=== PATIENT | female | born 1940 | race Native Hawaiian/Other Pacific Islander ===

== ENCOUNTER 2016-10-01 07:10 | Outpatient (CLI) | payer MEDICARE, OTHER | END 2016-10-01 07:11 | disposition home or self-care (01) | DX: Z51.81 Encounter for therapeutic drug level monitoring (principal); Z94.0 Kidney transplant status ==

== ENCOUNTER 2017-01-07 07:58 | Outpatient (CLI) | payer MEDICARE, OTHER | END 2017-01-07 07:59 | disposition home or self-care (01) | DX: Z51.81 Encounter for therapeutic drug level monitoring (principal); Z94.0 Kidney transplant status ==

== ENCOUNTER 2017-02-08 08:00 | Outpatient (CLI) | payer MEDICARE, OTHER ==
[2017-02-08 09:11] LABS: BASOPHILS % (AUTO) 0.6 %; EOSINOPHILS # (AUTO) 0.1 10^3/uL (0.0-0.7); EOSINOPHILS % (AUTO) 1.2 %; HCT - HEMATOCRIT 41.9 % (37.0-47.0); HGB - HEMOGLOBIN 13.8 g/dL (12.0-16.0); LYMPHOCYTES # (AUTO) 1.4 10^3/uL (1.5-3.5); LYMPHOCYTES % (AUTO) 16.3 %; MEAN CORPUSCULAR HEMOGLOBIN 29.8 pg (27.0-31.0); MEAN CORPUSCULAR HGB CONC 33.1 g/dL (32.0-36.0); MEAN CORPUSCULAR VOLUME 90.1 fL (81.0-99.0); MEAN PLATELET VOLUME 6.9 fL (7.9-10.8); MONOCYTES # (AUTO) 0.7 10^3/uL (0.0-1.0); NEUTROPHILS # (AUTO) 6.2 10^3/uL (1.5-6.6); NEUTROPHILS % (AUTO) 73.9 %; RED BLOOD COUNT 4.65 10^6/uL (4.20-5.40); RED CELL DISTRIBUTION WIDTH 14.4 % (12.0-15.0); UNCORRECTED WHITE BLOOD COUNT 8.4 x10^3/uL; WHITE BLOOD COUNT 8.4 x10^3/uL (4.8-10.8)
[2017-02-08 09:33] LABS: CALCIUM 9.5 mg/dL (8.5-10.3); CREATININE 1.1 mg/dL (0.4-1.0); MAGNESIUM 1.5 mg/dL (1.7-2.8); PHOSPHORUS 3.2 mg/dL (2.5-4.6); POTASSIUM 4.1 mmol/L (3.5-5.0)
== END 2017-02-08 08:01 | disposition home or self-care (01) ==
LOC: LAB 08:00
PROVIDERS: ATTEND Registered Nurse
DX: Z94.0 Kidney transplant status (principal); Z51.81 Encounter for therapeutic drug level monitoring; T86.10 Unspecified complication of kidney transplant
CPT/HCPCS: 36415; 80048; 80197; 82570; 83735; 84100; 84156; 85025

== ENCOUNTER 2017-02-16 07:29 | Outpatient (CLI) | payer MEDICARE, OTHER ==
[2017-02-16 12:42] LABS: BASOPHILS # (AUTO) 0.1 10^3/uL (0.0-0.1); BASOPHILS % (AUTO) 0.7 %; EOSINOPHILS # (AUTO) 0.2 10^3/uL (0.0-0.7); EOSINOPHILS % (AUTO) 1.8 %; HCT - HEMATOCRIT 42.6 % (37.0-47.0); LYMPHOCYTES # (AUTO) 1.2 10^3/uL (1.5-3.5); LYMPHOCYTES % (AUTO) 13.3 %; MEAN CORPUSCULAR HGB CONC 32.9 g/dL (32.0-36.0); MEAN CORPUSCULAR VOLUME 91.2 fL (81.0-99.0); MEAN PLATELET VOLUME 7.3 fL (7.9-10.8); MONOCYTES # (AUTO) 0.8 10^3/uL (0.0-1.0); MONOCYTES % (AUTO) 8.4 %; NEUTROPHILS # (AUTO) 6.8 10^3/uL (1.5-6.6); NEUTROPHILS % (AUTO) 75.8 %; RED BLOOD COUNT 4.67 10^6/uL (4.20-5.40); RED CELL DISTRIBUTION WIDTH 14.2 % (12.0-15.0)
[2017-02-16 12:59] LABS: CALCIUM 9.6 mg/dL (8.5-10.3); CREATININE 1.1 mg/dL (0.4-1.0); MAGNESIUM 1.7 mg/dL (1.7-2.8); PHOSPHORUS 3.7 mg/dL (2.5-4.6)
== END 2017-02-16 07:30 | disposition home or self-care (01) ==
LOC: LAB.WCP 07:29
PROVIDERS: ATTEND Registered Nurse
DX: Z94.0 Kidney transplant status (principal); Z51.81 Encounter for therapeutic drug level monitoring
CPT/HCPCS: 36415; 80048; 80197; 83735; 84100; 85025

== ENCOUNTER 2017-04-06 07:14 | Outpatient (CLI) | payer MEDICARE, OTHER ==
[2017-04-06 13:21] LABS: BASOPHILS % (AUTO) 0.6 %; EOSINOPHILS # (AUTO) 0.2 10^3/uL (0.0-0.7); EOSINOPHILS % (AUTO) 2.4 %; HCT - HEMATOCRIT 43.1 % (37.0-47.0); HGB - HEMOGLOBIN 13.9 g/dL (12.0-16.0); LYMPHOCYTES # (AUTO) 1.4 10^3/uL (1.5-3.5); LYMPHOCYTES % (AUTO) 17.5 %; MEAN CORPUSCULAR HEMOGLOBIN 29.9 pg (27.0-31.0); MEAN CORPUSCULAR HGB CONC 32.2 g/dL (32.0-36.0); MEAN CORPUSCULAR VOLUME 92.9 fL (81.0-99.0); MEAN PLATELET VOLUME 7.2 fL (7.9-10.8); MONOCYTES # (AUTO) 0.8 10^3/uL (0.0-1.0); MONOCYTES % (AUTO) 9.4 %; NEUTROPHILS # (AUTO) 5.6 10^3/uL (1.5-6.6); NEUTROPHILS % (AUTO) 70.1 %; NUCLEATED RED BLOOD CELLS AUTO 0.2 /100WBC; RED BLOOD COUNT 4.64 10^6/uL (4.20-5.40); RED CELL DISTRIBUTION WIDTH 14.2 % (12.0-15.0)
[2017-04-06 13:54] LABS: BILIRUBIN,TOTAL 0.8 mg/dL (0.2-1.0); CALCIUM 9.2 mg/dL (8.5-10.3); CREATININE 1.3 mg/dL (0.4-1.0); MAGNESIUM 1.8 mg/dL (1.7-2.8); PHOSPHORUS 3.7 mg/dL (2.5-4.6); POTASSIUM 3.8 mmol/L (3.5-5.0); TOTAL PROTEIN 7.1 g/dL (6.7-8.2)
== END 2017-04-06 07:15 | disposition home or self-care (01) ==
LOC: LAB.WCP 07:14
PROVIDERS: ATTEND Internal Medicine Nephrology
DX: Z94.0 Kidney transplant status (principal); Z51.81 Encounter for therapeutic drug level monitoring
CPT/HCPCS: 36415; 80053; 80197; 83735; 84100; 85025

== ENCOUNTER 2017-05-19 08:16 | Day surgery (SDC) | payer MEDICARE, OTHER ==
[~2017-05-19 08:16] MED LIST: BRIMONIDINE 0.2% OPHTH DROPS 5 ML ONE; TIMOLOL 0.5% OPHTH DROPS ONE
[2017-05-19] MEDS ORDERED: PROPARACAINE 0.5% OPHTH DROPS 15 ML ONE (09:10)
[2017-05-19] MEDS ORDERED: CYCLOPENTOLATE 1% OPHTH DROPS 2 ML ONE (09:11)
[2017-05-19] MEDS ORDERED: KETOROLAC 0.45% OPHTH DROPS ONE (09:11)
[2017-05-19] MEDS ORDERED: PHENYLEPHRINE 2.5% OPHTH 2 ML DROPS ONE (09:12)
[2017-05-19] MEDS ORDERED: LACTATED RINGERS 500 ML IV ONE (09:40)
[2017-05-19] MEDS ORDERED: PROPARACAINE 0.5% OPHTH DROPS 15 ML OPTH ONE (09:59)
[2017-05-19] MEDS ORDERED: BRIMONIDINE 0.2% OPHTH DROPS 5 ML OPTH ONE (09:59)
[2017-05-19] MEDS ORDERED: EPINEPHrine 1 MG/ML AMP IVP ONE (09:59)
[2017-05-19] MEDS ORDERED: CHONDR SULF/HYALURONATE SYRINGE IO ONE (09:59)
[2017-05-19] MEDS ORDERED: TRIAMCIN/MOXIFLOX/VANCO 1 ML VIAL IO ONE (10:00)
[2017-05-19] MEDS ORDERED: BSS/LIDOCAINE/EPINEPHRINE 1 ML SYRINGE IO ONE (10:00)
[2017-05-19] MEDS ORDERED: TIMOLOL 0.5% OPHTH DROPS OPTH ONE (10:00)
[2017-05-19] MEDS ORDERED: PROPOFOL 200 MG/20 ML VIAL IVP ONE (10:14)
[2017-05-19] MEDS ORDERED: MIDAZOLAM 2 MG/2 ML VIAL IVP ONE (10:14)
[2017-05-19 10:37] VITALS: BP 137/69
--- NOTE | 2017-05-19 11:23 | OPERATIVE REPORT ---
DATE OF SURGERY: 05/19/2017 00:00:00 PREOPERATIVE DIAGNOSIS: Visually significant cataract, right eye. This was her first cataract surgery. POSTOPERATIVE DIAGNOSIS: Visually significant cataract, right eye. This was her first cataract surgery. NAME OF PROCEDURE: Phacoemulsification posterior chamber intraocular lens implant, right eye. SURGEON: Mike Hamilton MD. ANESTHESIA: Monitored anesthesia care. COMPLICATIONS: None. OPERATIVE INDICATIONS: This is a 76-year-old woman with progressive vision loss in the right eye due to 2-3+ nuclear sclerotic and 2+ cortical cataract. Best corrected visual acuity was 20/50 with glare to 20/70 in the right eye. Indications for surgery were overall decrease in vision, difficulty seeing wounds a computer screen, difficulty reading, difficulty seeing words and close captions on TV, difficulty seeing street signs, difficulty driving at light because of headlights from other vehicles, and difficulty with glare or bright lights in any situation. She was consented at length concerning the risks and benefits of cataract surgery, after which she expressed a desire to proceed with surgery. OPERATIVE PROCEDURE: The patient was taken into OR #2 and placed under monitored anesthesia care. A surgical time-out was conducted confirming the correct patient, correct procedure, and correct surgical site. She was given topical anesthesia and then prepped and draped in the usual sterile fashion. The eye was entered at the 12 and 9 o'clock positions. Intracameral Shugarcaine was injected into the anterior chamber followed by Viscoat. A continuous tear curvilinear capsulorrhexis was performed. The nucleus was hydrodissected and phacoemulsified. The cortex was evacuated using automated infusion and aspiration (I/A). Provisc was injected into the capsular bag and a 21.0 diopter intraocular lens was inserted into the bag. Approximately 0.7 mL of a mixture of triamcinolone, moxifloxacin, and vancomycin was injected subconjunctivally in the superior quadrant for infection and inflammation prophylaxis. I/A was used to evacuate the viscoelastic materials. The eye was inflated to a physiologic pressure using balanced salt solution and found to be watertight. The patient was taken from the operating room in good condition, given postoperative instructions. JOB #: [id number] [facility] JOB #:[id number] [facility]
== END 2017-05-19 08:17 | disposition home or self-care (01) ==
LOC: SDS 08:16
PROVIDERS: ATTEND Ophthalmology
PROC: 08RJ3JZ Replacement of Right Lens with Synthetic Substitute, Percutaneous Approach (ICD-10-PCS; principal; 2017-05-19 10:00)
DX: H25.811 Combined forms of age-related cataract, right eye (principal); I10 Essential (primary) hypertension; J45.909 Unspecified asthma, uncomplicated; Z79.82 Long term (current) use of aspirin; E11.9 Type 2 diabetes mellitus without complications; Z94.0 Kidney transplant status
CPT/HCPCS: 66984; A9270; J3490; J7120; V2632

== ENCOUNTER 2017-05-31 07:24 | Outpatient (CLI) | payer MEDICARE, OTHER ==
[2017-05-31 12:16] LABS: BILIRUBIN,URINE NEGATIVE (NEGATIVE); PH,URINE 6.5 PH (5.0-7.5)
[2017-05-31 12:25] LABS: UR CULTURE IF IND INDICATED; WBC,URINE 0-3 /HPF (0-5)
[2017-05-31 12:54] LABS: BASOPHILS # (AUTO) 0.1 10^3/uL (0.0-0.1); BASOPHILS % (AUTO) 0.8 %; EOSINOPHILS # (AUTO) 0.2 10^3/uL (0.0-0.7); EOSINOPHILS % (AUTO) 2.2 %; HGB - HEMOGLOBIN 14.3 g/dL (12.0-16.0); LYMPHOCYTES # (AUTO) 1.3 10^3/uL (1.5-3.5); LYMPHOCYTES % (AUTO) 17.6 %; MEAN CORPUSCULAR HEMOGLOBIN 29.7 pg (27.0-31.0); MEAN CORPUSCULAR HGB CONC 32.4 g/dL (32.0-36.0); MEAN CORPUSCULAR VOLUME 91.7 fL (81.0-99.0); MEAN PLATELET VOLUME 6.9 fL (7.9-10.8); MONOCYTES # (AUTO) 0.7 10^3/uL (0.0-1.0); MONOCYTES % (AUTO) 9.4 %; NEUTROPHILS # (AUTO) 5.3 10^3/uL (1.5-6.6); NUCLEATED RED BLOOD CELLS AUTO 0.1 /100WBC; UNCORRECTED WHITE BLOOD COUNT 7.6 x10^3/uL; WHITE BLOOD COUNT 7.6 x10^3/uL (4.8-10.8)
[2017-05-31 13:21] LABS: BILIRUBIN,TOTAL 0.6 mg/dL (0.2-1.0); CALCIUM 9.3 mg/dL (8.5-10.3); CREATININE 1.3 mg/dL (0.4-1.0); MAGNESIUM 1.9 mg/dL (1.7-2.8); PHOSPHORUS 2.9 mg/dL (2.5-4.6); POTASSIUM 4.2 mmol/L (3.5-5.0); TOTAL PROTEIN 7.4 g/dL (6.7-8.2)
[2017-06-02 14:02] LABS: TEST RESULT REPORT (())
== END 2017-05-31 07:25 | disposition home or self-care (01) ==
LOC: LAB.WCP 07:24
PROVIDERS: ATTEND Internal Medicine Nephrology
DX: Z51.81 Encounter for therapeutic drug level monitoring (principal); Z94.0 Kidney transplant status
CPT/HCPCS: 36415; 80053; 80197; 81001; 81599; 82570; 83735; 84100; 84156; 85025; 87086

== ENCOUNTER 2017-10-16 23:28 | Emergency (ER) | payer MEDICARE, OTHER ==
[2017-10-17 00:22] LABS: BASOPHILS % (AUTO) 0.3 %; EOSINOPHILS % (AUTO) 0.6 %; LYMPHOCYTES # (AUTO) 0.8 10^3/uL (1.5-3.5); LYMPHOCYTES % (AUTO) 9.3 %; MEAN CORPUSCULAR HGB CONC 32.8 g/dL (32.0-36.0); MEAN CORPUSCULAR VOLUME 91.4 fL (81.0-99.0); MEAN PLATELET VOLUME 6.9 fL (7.9-10.8); MONOCYTES # (AUTO) 0.7 10^3/uL (0.0-1.0); MONOCYTES % (AUTO) 7.9 %; NEUTROPHILS # (AUTO) 7.1 10^3/uL (1.5-6.6); NEUTROPHILS % (AUTO) 81.9 %; PLT - PLATELET COUNT 217 10^3/uL (130-450); RED BLOOD COUNT 4.99 10^6/uL (4.20-5.40); RED CELL DISTRIBUTION WIDTH 13.9 % (12.0-15.0); WHITE BLOOD COUNT 8.7 x10^3/uL (4.8-10.8)
[2017-10-17] MEDS ORDERED: ONDANSETRON 4 MG/2 ML VIAL IVP STA (00:26)
[2017-10-17] MEDS ORDERED: HYDROmorphone 1 MG/ML SYRINGE IVP STA (00:26)
[2017-10-17 00:27] LABS: ALBUMIN 3.6 g/dL (3.2-5.5); BILIRUBIN,TOTAL 1.4 mg/dL (0.2-1.0); CALCIUM 9.1 mg/dL (8.5-10.3); TOTAL PROTEIN 7.1 g/dL (6.7-8.2)
[2017-10-17 00:48] LABS: BILIRUBIN,URINE NEGATIVE (NEGATIVE); GLUCOSE, URINE (UA) NEGATIVE (NEGATIVE); KETONES,URINE (UA) NEGATIVE (NEGATIVE); LEUKOCYTE ESTERASE, URINE NEGATIVE (NEGATIVE); NITRITE,URINE NEGATIVE (NEGATIVE); OCCULT BLOOD,URINE TRACE-INTA (NEGATIVE); PH,URINE 7.5 PH (5.0-7.5); PROTEIN,URINE NEGATIVE (NEGATIVE); UROBILINOGEN,URINE 0.2 (NORMAL) E.U./dL (NORMAL)
[2017-10-17 00:50] LABS: CLARITY,URINE CLEAR (CLEAR)
[2017-10-17 02:47] VITALS: BP 130/78
--- NOTE | 2017-10-17 02:59 | Ultrasound Preliminary Report ---
Exam: US ABDOMEN LIMITED IMPRESSION: 1. Multiple small stones in the gallbladder. No obvious cholecystitis, but patient had been medicated . 2. No biliary dilatation seen. 3. Fatty liver with mild perihepatic ascites. 4. Atrophy of the [place] right kidney. Right renal transplant essentially unremarkable aside from pos sible nonobstructing stones. [facility] SITE ID: [id number]
--- NOTE | 2017-10-17 03:00 | Ultrasound Report ---
EXAM: ABDOMEN ULTRASOUND LIMITED, RUQ EXAM DATE: 10/17/2017 02:46 AM. CLINICAL HISTORY: Abdominal pain. History of renal transplant. COMPARISON: None. TECHNIQUE: Real-time scanning was performed with static images obtained. FINDINGS: Liver: Increased echogenicity. 15.2 cm. Main portal vein flow: Hepatopetal. Gallbladder: Stone in the gallbladder. Wall thickness is normal at 1.2 mm. Could not accurately asses s sonographic Carreno's sign as the patient had been medicated. Biliary System: CBD measures 5.6 mm. No intrahepatic or extrahepatic ductal dilatation. Other: Atrophy of the [place] right kidney measuring 5.4 x 3.3 x 1.8 cm. Right-sided renal transplant measures 13.2 x 5.1 x 5.2 cm. No hydronephrosis or perinephric fluid collections. Blood flow seen in the kidney. Echogenic lower pole foci are seen which could be nonobstructing stones. Trace perihepati c ascites. Inferior vena cava appears patent. Visualized portions of the appendix appear normal. IMPRESSION: 1. Multiple small stones in the gallbladder. No obvious cholecystitis, but patient had been medicated . 2. No biliary dilatation seen. 3. Fatty liver with mild perihepatic ascites. 4. 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 Right renal transplant essentially unremarkable aside from pos sible nonobstructing stones. [facility] Referring Provider Line: [phone] SITE ID: [id number]
--- NOTE | 2017-10-17 03:22 | ED Physician Documentation ---
PD HPI ABD PAIN - Stated complaint Stated Complaint: RT SIDE ABDOMINAL PAIN - Chief complaint Chief Complaint: Abd Pain - History obtained from History obtained from: Patient, Family (Spouse) - History of Present Illness Timing - onset: How many hours ago (3) Timing - duration: Hours (3) Timing - details: Still present Quality: Pain Location: RUQ Worsened by: Eating Associated symptoms: Nausea. No: Fever, Vomiting Similar symptoms before: Has not had sx before - Additional information Additional information: The patient is a 77-year-old female who presents with right upper quadrant abdominal pain that started 3 hours ago after eating rice, ham, and eggs. She has had associated nausea, without vomiting. She denies fever. She does report mild dysuria. She denies history of similar symptoms in the past. However she does have a prior history of bowel obstruction for which she is status post bowel surgery in 1993. She is also status post hysterectomy, and underwent kidney transplant in October 2014. More recently, she completed a course of antibiotics for community-acquired pneumonia 5 days ago. Review of Systems Constitutional: denies: Fever Nose: denies: Congestion Throat: denies: Sore throat Cardiac: denies: Chest pain / pressure Respiratory: denies: Dyspnea, Cough GI: reports: Abdominal Pain, Nausea. denies: Vomiting, Diarrhea : reports: Dysuria (mild) Skin: denies: Rash Musculoskeletal: denies: Back pain, Extremity swelling Neurologic: denies: Focal weakness, Numbness, Headache PD PAST MEDICAL HISTORY - Past Medical History Past Medical History: Yes Cardiovascular: Hypertension, Other Respiratory: Asthma Neuro: Dementia Endocrine/Autoimmune: None GI: Other (Bowel obstruction in 1993.) : Dialysis, Other (Kidney transplant.) HEENT: None Psych: None Musculoskeletal: Osteoarthritis Derm: None - Past Surgical History Past Surgical History: Yes General: Appendectomy, Bowel surgery Ortho: Hip replacement, 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, Other (Kidney transplant.) Cardiovascular: Pacemaker HEENT: Tonsil/Adenoidectomy - Present Medications Home Medications: Ambulatory Orders Medication Instructions Recorded Confirmed Acetaminophen [Tylenol] 500 mg PO TID 03/01/13 05/19/17 Albuterol [Proventil Hfa] 1 puffs INH Q4-6H PRN 03/01/13 05/19/17 Aspirin EC [Ecotrin] 81 mg PO DAILY 03/01/13 05/19/17 Calcium Acetate [Phoslo] 1,334 mg PO TID 03/01/13 05/19/17 Calcium Carbonate [Tums] 500 mg PO DAILY 03/01/13 05/19/17 Cholecalciferol (Vitamin D3) 2,000 unit PO DAILY 03/01/13 05/19/17 [Vitamin D3] Cyanocobalamin (Vitamin B-12) 1,000 mcg PO DAILY 03/01/13 05/19/17 [Vitamin B-12] Diltiazem HCl [Tiazac] 360 mg PO DAILY 03/01/13 03/01/13 Doxercalciferol [Hectorol] 0.5 mcg PO 03/01/13 03/01/13 Folic Acid/Vit Bcomp,C 0.8 mg PO HS 03/01/13 03/01/13 [Nephro-Cristel Tablet] HYDROcod/ACETAM 5/325 [Vicodin 1 - 2 ea PO Q6H PRN #15 tablet 03/01/13 5/325] Hydrocodone/Acetaminophen [Vicodin 1 each PO 3-4XD PRN 03/01/13 05/19/17 5-300 mg Tablet] Levothyroxine Sodium [Synthroid] 150 mcg PO DAILY 03/01/13 05/19/17 Loratadine [Claritin] 10 mg PO DAILY 03/01/13 05/19/17 Magnesium 400 mg PO DAILY 03/01/13 05/19/17 Meclizine HCl [Antivert] 12.5 mg PO DAILY 03/01/13 05/19/17 Pramipexole [Mirapex] 0.125 mg PO DAILY 03/01/13 05/19/17 Prochlorperazine Maleate 5 mg PO DAILY 03/01/13 05/19/17 Sevelamer Carbonate [Renvela] 3,200 mg PO TID 03/01/13 05/19/17 Sodium Bicarbonate 650 mg PO DAILY 03/01/13 05/19/17 Telmisartan [Micardis] 40 mg PO DAILY 03/01/13 05/19/17 HYDROcod/ACETAM 5/325 [Vicodin 1 - 2 ea PO Q6H PRN #20 tablet 06/24/13 05/19/17 5/325] HYDROcod/ACETAM 5/325 [Vicodin 1 - 2 ea PO Q6H PRN #20 tablet 10/17/17 5/325] Promethazine [Phenergan] 25 - 50 mg PO Q6H PRN #10 tab 10/17/17 - Allergies Allergies/Adverse Reactions: Allergies Allergy/AdvReac Type Severity Reaction Status Date / Time erythromycin base Allergy Intermediate swelling Verified 10/16/17 23:38 [Erythromycin Base] Penicillins Allergy Intermediate swelling Verified 10/16/17 23:38 - Living Situation Living Situation: reports: With spouse/s.o. Living Arrangement: reports: At home - Social History Does the pt smoke?: No Smoking Status: Never smoker Does the pt drink ETOH?: No Does the pt have substance abuse?: No - Immunizations Immunizations are current?: Yes - POLST Patient has POLST: No PD ED PE NORMAL - Vitals Vital signs reviewed: Yes (hypertensive) - General General: Alert and oriented X 3, Well developed/nourished, Other (overweight) - HEENT HEENT: Atraumatic, Moist mucous membranes, Pharynx benign - Neck Neck: No adenopathy, No JVD - Cardiac Cardiac: RRR - Respiratory Respiratory: No respiratory distress, Clear bilaterally - Abdomen Abdomen: Normal bowel sounds, Soft, Other (Tenderness to palpation in the right upper quadrant, without rebound tenderness or guarding.) - Back Back: No CVA TTP - Derm Derm: No rash - Extremities Extremities: No edema, No calf tenderness / cord - Neuro Neuro: Alert and oriented X 3, No motor deficit, No sensory deficit Results - Vitals Vitals: Oxygen O2 Source Room air - Labs Labs: Laboratory Tests 10/16/17 10/16/17 10/17/17 23:53 23:56 00:40 WBC 8.7 RBC 4.99 Hgb 15.0 Hct 45.6 MCV 91.4 MCH 30.0 MCHC 32.8 RDW 13.9 Plt Count 217 MPV 6.9 L Neut # 7.1 H Lymph # 0.8 L Boyd # 0.7 Eos # 0.0 Baso # 0.0 Absolute Nucleated RBC 0.00 Nucleated RBC % 0.0 Sodium 136 Potassium 3.5 Chloride 102 Carbon Dioxide 26 Anion Gap 8.0 BUN 16 Creatinine 1.0 Estimated GFR (MDRD) 54 L Glucose 123 H Calcium 9.1 Total Bilirubin 1.4 H AST 27 ALT 19 Alkaline Phosphatase 55 Total Protein 7.1 Albumin 3.6 Globulin 3.5 Albumin/Globulin Ratio 1.0 Lipase 25 Urine Color YELLOW Urine Clarity CLEAR Urine pH 7.5 Ur Specific [place] 1.020 Urine Protein NEGATIVE Urine Glucose (UA) NEGATIVE Urine Ketones NEGATIVE Urine Occult Blood TRACE-INTA Urine Nitrite NEGATIVE Urine Bilirubin NEGATIVE Urine Urobilinogen 0.2 (NORMAL) Ur Leukocyte Esterase NEGATIVE Ur Microscopic Review NOT INDICATED Urine Culture Comments NOT INDICATED - Rads (name of study) RUQ U/S Radiology: Prelim report reviewed, EMP read contemporaneously, See rad report ( Multiple small stones in the gallbladder. No obvious cholecystitis, but the patient had been medicated. No biliary dilatation seen. Fatty liver with mild perihepatic ascites. Atrophy of the [place] right kidney. Right renal transplant essentially unremarkable aside from possible nonobstructing stones.) PD MEDICAL DECISION MAKING - ED course Complexity details: reviewed results, re-evaluated patient, considered differential, d/w patient, d/w family ED course: The patient's presentation is most consistent with biliary colic, without acute cholecystitis. CBC and chemistry panel are unremarkable. Urinalysis is negative. Treatment in the emergency department included administration of Zofran 4 mg IV and hydromorphone 1 mg IV. This relieved the patient's pain. After returning from ultrasound she continued to have mild nausea, for which oral Zofran was administered with good relief. I discussed with her and her the results of the ultrasound, the importance of follow-up with general surgery, as well as potentially worrisome signs or symptoms that should prompt reevaluation in the emergency department. She is being discharged with prescription for Vicodin, 20 tablets, and for Phenergan. Departure - Departure Disposition: 01 Home, Self Care Clinical Impression: Cholelithiasis Qualifiers: Cholelithiasis location: gallbladder Cholecystitis presence: without cholecystitis Biliary obstruction: without biliary obstruction Qualified Code(s) : K80.20 - Calculus of gallbladder without cholecystitis without obstruction Condition: Stable Instructions: ED Gallstone W Biliary Colic Follow-Up: JU BOGGS MD [Physician No Access] - [facility] Surgical Services [Provider Group] Prescriptions: HYDROcod/ACETAM 5/325 [Vicodin 5/325] 1 - 2 ea PO Q6H PRN #20 tablet PRN Reason: Pain Promethazine [Phenergan] 25 - 50 mg PO Q6H PRN #10 tab PRN Reason: Nausea / Vomiting Comments: Avoid greasy or fatty foods. You can use Phenergan as prescribed as needed for nausea. You can use Vicodin as prescribed if needed for pain. Follow-up with general surgery. Call to schedule a follow-up appointment. Return to the emergency department if you develop increasing abdominal pain, persistent vomiting, fever, or otherwise worsening symptoms. Discharge Date/Time: 10/17/17 03:41
[2017-10-17] MEDS ORDERED: ONDANSETRON ODT 4 MG TABLET TL STA (03:33)
== END 2017-10-17 03:41 | disposition home or self-care (01) ==
LOC: ED 23:28
DX: K80.20 Calculus of gallbladder without cholecystitis without obstruction (principal); I10 Essential (primary) hypertension; F03.90 Unspecified dementia, unspecified severity, without behavioral disturbance, psychotic disturbance, mood disturbance, and anxiety; Z96.649 Presence of unspecified artificial hip joint; Z94.0 Kidney transplant status
CPT/HCPCS: 36415; 76705; 80053; 81003; 83690; 85025; 96374; 99283; 99284; J1170; Q0162; 81001; 87086

== ENCOUNTER 2017-10-31 07:12 | Outpatient (CLI) | payer MEDICARE, OTHER ==
[2017-10-31 12:54] LABS: BILIRUBIN,URINE NEGATIVE (NEGATIVE); GLUCOSE, URINE (UA) NEGATIVE (NEGATIVE); KETONES,URINE (UA) NEGATIVE (NEGATIVE); LEUKOCYTE ESTERASE, URINE NEGATIVE (NEGATIVE); NITRITE,URINE NEGATIVE (NEGATIVE); OCCULT BLOOD,URINE SMALL (NEGATIVE); PH,URINE 5.5 PH (5.0-7.5); PROTEIN,URINE NEGATIVE (NEGATIVE); UROBILINOGEN,URINE 0.2 (NORMAL) E.U./dL (NORMAL)
[2017-10-31 12:59] LABS: BASOPHILS % (AUTO) 0.5 %; EOSINOPHILS # (AUTO) 0.2 10^3/uL (0.0-0.7); EOSINOPHILS % (AUTO) 2.7 %; HGB - HEMOGLOBIN 14.6 g/dL (12.0-16.0); LYMPHOCYTES # (AUTO) 1.2 10^3/uL (1.5-3.5); MEAN CORPUSCULAR HEMOGLOBIN 30.2 pg (27.0-31.0); MEAN CORPUSCULAR HGB CONC 32.5 g/dL (32.0-36.0); MEAN CORPUSCULAR VOLUME 92.9 fL (81.0-99.0); MEAN PLATELET VOLUME 6.9 fL (7.9-10.8); MONOCYTES # (AUTO) 0.7 10^3/uL (0.0-1.0); NEUTROPHILS # (AUTO) 4.3 10^3/uL (1.5-6.6); NEUTROPHILS % (AUTO) 66.8 %; PLT - PLATELET COUNT 190 10^3/uL (130-450); RED BLOOD COUNT 4.84 10^6/uL (4.20-5.40); RED CELL DISTRIBUTION WIDTH 14.7 % (12.0-15.0); WHITE BLOOD COUNT 6.5 x10^3/uL (4.8-10.8)
[2017-10-31 13:00] LABS: CLARITY,URINE CLOUDY (CLEAR)
[2017-10-31 13:10] LABS: BACTERIA,URINE Rare /HPF (None Seen); RBC,URINE 0-5 /HPF (0-5); SQUAMOUS EPITHELIAL CELL,UR MOD Squamous (<= Few)
[2017-10-31 13:11] LABS: AMORPHOUS SEDIMENT,UR Moderate /LPF
[2017-10-31 13:17] LABS: ALBUMIN 3.4 g/dL (3.2-5.5); BILIRUBIN,TOTAL 1.2 mg/dL (0.2-1.0); CALCIUM 8.8 mg/dL (8.5-10.3); CREATININE 1.1 mg/dL (0.4-1.0); MAGNESIUM 1.3 mg/dL (1.7-2.8); PHOSPHORUS 3.3 mg/dL (2.5-4.6); TOTAL PROTEIN 6.8 g/dL (6.7-8.2)
[2017-10-31 13:31] LABS: CREATININE,URINE 176.5 mg/dL; PROTEIN/CREATININE RATIO,URINE 0.2 (<=0.2)
== END 2017-10-31 07:13 | disposition home or self-care (01) ==
LOC: LAB.WCP 07:12
PROVIDERS: ATTEND Internal Medicine Nephrology
DX: Z94.0 Kidney transplant status (principal); Z51.81 Encounter for therapeutic drug level monitoring
CPT/HCPCS: 36415; 80053; 80197; 81001; 81599; 82570; 83735; 84100; 84156; 85025; 87086; 87799

== ENCOUNTER 2017-12-09 10:24 | Outpatient (CLI) | payer MEDICARE, OTHER ==
[2017-12-09 10:44] LABS: BASOPHILS % (AUTO) 0.4 %; EOSINOPHILS # (AUTO) 0.1 10^3/uL (0.0-0.7); EOSINOPHILS % (AUTO) 2.2 %; HGB - HEMOGLOBIN 14.7 g/dL (12.0-16.0); LYMPHOCYTES # (AUTO) 1.1 10^3/uL (1.5-3.5); LYMPHOCYTES % (AUTO) 17.4 %; MEAN CORPUSCULAR HGB CONC 33.1 g/dL (32.0-36.0); MEAN CORPUSCULAR VOLUME 93.6 fL (81.0-99.0); MEAN PLATELET VOLUME 6.3 fL (7.9-10.8); MONOCYTES # (AUTO) 0.5 10^3/uL (0.0-1.0); MONOCYTES % (AUTO) 8.4 %; NEUTROPHILS # (AUTO) 4.6 10^3/uL (1.5-6.6); NEUTROPHILS % (AUTO) 71.6 %; PLT - PLATELET COUNT 168 10^3/uL (130-450); RED BLOOD COUNT 4.73 10^6/uL (4.20-5.40); WHITE BLOOD COUNT 6.4 x10^3/uL (4.8-10.8)
[2017-12-09 10:58] LABS: ALBUMIN 3.5 g/dL (3.2-5.5); ALBUMIN/GLOBULIN RATIO 1.1 (1.0-2.2); BILIRUBIN,TOTAL 1.1 mg/dL (0.2-1.0); TOTAL PROTEIN 6.6 g/dL (6.7-8.2)
== END 2017-12-09 10:25 | disposition home or self-care (01) ==
LOC: LAB 10:24
PROVIDERS: ATTEND Surgery
DX: Z01.812 Encounter for preprocedural laboratory examination (principal); K80.50 Calculus of bile duct without cholangitis or cholecystitis without obstruction; K81.9 Cholecystitis, unspecified
CPT/HCPCS: 36415; 80053; 85025; 86850; 86900; 86901

== ENCOUNTER 2017-12-12 10:18 | Day surgery (SDC) | payer MEDICARE, OTHER ==
[2017-12-12] MEDS ORDERED: LACTATED RINGERS 1,000 ML IV ONE ×2 (11:22→16:13)
[2017-12-12] MEDS ORDERED: ceFAZolin 2 GM/50 ML 2 GM/50 ML BAG IV ONE (11:43)
[2017-12-12] MEDS ORDERED: BUPIVACAINE 0.5%-EPI 1:200000 PF 10 ML VIAL ONE ×2 (11:47→13:16)
[2017-12-12] MEDS ORDERED: CLINDAMYCIN 600 MG/50 ML 50 ML IV ONE (12:12)
[2017-12-12] MEDS ORDERED: BUPIVACAINE 0.5%-EPI 1:200000 PF 30 ML VIAL SUBQ ONE ×2 (12:57)
[2017-12-12] MEDS ORDERED: ACETAMINOPHEN 1,000 MG/100 ML 100 ML IV ONE (13:45)
[2017-12-12] MEDS ORDERED: ONDANSETRON 4 MG/2 ML VIAL IVP ONE (13:45)
[2017-12-12] MEDS ORDERED: fentaNYL 250 MCG/5 ML VIAL IVP ONE (13:45)
[2017-12-12] MEDS ORDERED: ROCURONIUM 50 MG/5 ML VIAL IVP ONE (13:45)
[2017-12-12] MEDS ORDERED: NEOSTIGMINE 1 MG/1 ML 10 ML MDV IVP ONE (13:45)
[2017-12-12] MEDS ORDERED: PROPOFOL 200 MG/20 ML VIAL IVP ONE (13:45)
[2017-12-12] MEDS ORDERED: GLYCOPYRROLATE 1 MG/5 ML VIAL IVP ONE (13:45)
--- NOTE | 2017-12-12 13:50 | OPERATIVE REPORT ---
Operative Report - General Procedure Date: 12/12/17 Pre-Op Diagnosis: Biliary Colic Procedure Performed: Laparoscopic Cholecystectomy Post Op Diagnosis: same - Procedure Note Primary Surgeon: Sunita Anesthesia Technique: General ET tube - Other Other Information/Narrative: Procedure Performed: Laparoscopic cholecystectomy, TAP block Preoperative diagnosis: Biliary Colic Postoperative diagnosis: Biliary Colic Anesthesia: General Surgeon: Dr. Dorsey Findings: After obtaining informed consent the patient was brought into the operating room and positioned on the operating table in the supine position taking noted pressure points. The patient was intubated by anesthesia. Perioperative antibiotics were administered. The patient was then prepped and draped in the usual sterile fashion and a timeout was taken according to protocol. AA 5 mm incision was made in the epigastric region to the right of the midline. The [employer] trochar was used to enter the abdominal cavity. The abdominal cavity was insufflated. A 10 mm incision was created in the patient' s mid abdomen to the right of the midline avoiding adhesions in the midline from her previous laparotomies and a 10 mm port placed under direct visualization. 2 additional 5 mm ports were then placed along the patient's right lateral abdominal wall. The gallbladder was grasped and retracted over the dome of the liver. The gallbladder was slightly distended but otherwise normal in appearance. The liver was noted to be congested and pale. The fundus of the gallbladder was grasped and retracted medially exposing the lateral attachments. The lateral attachments were carefully taken down working my way laterally to medially exposing the cystic duct. The cystic duct was circumferentially dissected free from surrounding fatty tissue. The cystic artery was similarly dissected out. The base of the gallbladder was dissected off of the liver bed and the critical view was obtained. The cystic duct was clipped with 2 clips placed proximally 1 distally and divided. The cystic artery was divided in a similar manner. The gallbladder was then removed from the gallbladder fossa with electrocautery. There was no spillage of bile and stones during the process of gallbladder removal. The gallbladder fossa was inspected for any signs of bleeding and none were noted. The gallbladder was then placed in a specimen bag and removed. The fascial incision was extended slightly with a blunt clamp to accommodate the gallbladder. 40 cc of marcaine was then injected at the costal margin intraperitoneally performing a TAP block. The 10 mm incision was then closed using the Solomon Santiago device and a [id number] 0 Vicryl suture . The abdominal cavity was then allowed to desufflate and all trochars were removed. An additional 20 cc of local anesthetic was injected in the skin incisions. The skin incisions were closed with 4-0 Monocryl. The patient was subsequently extubated and taken to the recovery room in stable condition. Estimated blood loss: Minimal Complications: None Specimen: Gallbladder
[2017-12-12] MEDS ORDERED: ONDANSETRON 4 MG/2 ML VIAL ONE (14:50)
[2017-12-12] MEDS ORDERED: METOCLOPRAMIDE 10 MG/2 ML VIAL ONE (17:27)
[2017-12-12 18:00] VITALS: BP 128/67
[2017-12-12] MEDS ORDERED: oxyCOD/ACETAMIN 5 MG/325 MG TABLET PO PRN (18:56)
== END 2017-12-13 06:00 | disposition home or self-care (01) ==
LOC: SDS 10:18 → UNDOADMOB 13:35 → OBS 13:35 → SDS 12-13 06:00 → UNDODISOB 12-13 06:00
PROVIDERS: ATTEND Surgery
PROC: 0FT44ZZ Resection of Gallbladder, Percutaneous Endoscopic Approach (ICD-10-PCS; principal; 2017-12-12 12:15)
DX: K80.10 Calculus of gallbladder with chronic cholecystitis without obstruction (principal); Z95.0 Presence of cardiac pacemaker; J45.909 Unspecified asthma, uncomplicated; N18.6 End stage renal disease; Z99.2 Dependence on renal dialysis; Z87.891 Personal history of nicotine dependence; Z79.82 Long term (current) use of aspirin; Z94.0 Kidney transplant status
CPT/HCPCS: 47562; 88304; A9270; J0131; J2765; J3010; J7120

== ENCOUNTER 2018-03-17 07:10 | Outpatient (CLI) | payer MEDICARE, OTHER ==
[2018-03-17 12:31] LABS: BASOPHILS % (AUTO) 0.6 %; EOSINOPHILS # (AUTO) 0.1 10^3/uL (0.0-0.7); EOSINOPHILS % (AUTO) 2.4 %; HGB - HEMOGLOBIN 14.2 g/dL (12.0-16.0); LYMPHOCYTES % (AUTO) 17.6 %; MEAN CORPUSCULAR HEMOGLOBIN 30.7 pg (27.0-31.0); MEAN CORPUSCULAR HGB CONC 31.5 g/dL (32.0-36.0); MEAN CORPUSCULAR VOLUME 97.5 fL (81.0-99.0); MEAN PLATELET VOLUME 7.2 fL (7.9-10.8); MONOCYTES # (AUTO) 0.5 10^3/uL (0.0-1.0); MONOCYTES % (AUTO) 9.1 %; NEUTROPHILS # (AUTO) 3.9 10^3/uL (1.5-6.6); NEUTROPHILS % (AUTO) 70.3 %; PLT - PLATELET COUNT 183 10^3/uL (130-450); RED BLOOD COUNT 4.61 10^6/uL (4.20-5.40); RED CELL DISTRIBUTION WIDTH 14.1 % (12.0-15.0); WHITE BLOOD COUNT 5.6 x10^3/uL (4.8-10.8)
[2018-03-17 13:02] LABS: CREATININE,URINE 220.9 mg/dL; PROTEIN/CREATININE RATIO,URINE 0.2 (<=0.2)
[2018-03-17 13:04] LABS: CALCIUM 8.9 mg/dL (8.5-10.3); CREATININE 1.1 mg/dL (0.4-1.0)
== END 2018-03-17 23:59 | disposition home or self-care (01) ==
LOC: LAB.WCP 07:10
PROVIDERS: ATTEND Registered Nurse
DX: Z94.0 Kidney transplant status (principal); Z51.81 Encounter for therapeutic drug level monitoring; T86.10 Unspecified complication of kidney transplant
CPT/HCPCS: 36415; 80048; 80197; 82570; 83735; 84100; 84156; 85025

== ENCOUNTER 2018-04-09 08:58 | Outpatient (CLI) | payer MEDICARE, OTHER | END 2018-04-09 08:59 | disposition critical access hospital (66) | LOC: EMS 08:58 | PROVIDERS: ATTEND Surgery | DX: I46.9 Cardiac arrest, cause unspecified (principal) | CPT/HCPCS: A0425; A0433 ==

== ENCOUNTER 2018-04-09 09:15 | Emergency (ER) | payer MEDICARE, OTHER ==
[2018-04-09 09:18] VITALS: BP 0/0
--- NOTE | 2018-04-09 09:28 | ED Physician Documentation ---
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 She was seen by her about 5 minutes prior to finding her unresponsive. He called 911 and medics were present right away. CPR, shocks, epi and amioderone were administered without ROSCI. 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, Other Cardiovascular: Pacemaker HEENT: Tonsil/Adenoidectomy - Present Medications Home Medications: Ambulatory Orders Medication Instructions Recorded Confirmed Aspirin EC [Ecotrin] 81 mg PO DAILY 03/01/13 12/12/17 Calcium Acetate [Phoslo] 1,334 mg PO TID 03/01/13 12/12/17 Calcium Carbonate [Tums] 500 mg PO DAILY 03/01/13 12/12/17 Cholecalciferol (Vitamin D3) 2,000 unit PO DAILY 03/01/13 12/12/17 [Vitamin D3] Cyanocobalamin (Vitamin B-12) 1,000 mcg PO DAILY 03/01/13 12/12/17 [Vitamin B-12] Levothyroxine Sodium [Synthroid] 150 mcg PO DAILY 03/01/13 12/12/17 Magnesium 400 mg PO DAILY 03/01/13 12/12/17 Sevelamer Carbonate [Renvela] 3,200 mg PO TID 03/01/13 12/12/17 HYDROcod/ACETAM 5/325 [Vicodin 1 - 2 ea PO Q6H PRN #20 tablet 06/24/13 12/12/17 5/325] Calcitriol [Rocaltrol] 0.25 mcg PO UD 12/09/17 12/12/17 Metoprolol Succinate 25 mg PO BID 12/09/17 12/12/17 Mycophenolate Sodium [Myfortic] 180 mg PO TID 12/09/17 12/12/17 Pantoprazole [Protonix] 40 mg PO DAILY 12/09/17 12/12/17 Tacrolimus [Prograf] 1 mg PO BID 12/09/17 12/12/17 amLODIPine [Norvasc] 5 mg PO DAILY 12/09/17 12/12/17 - Allergies Allergies/Adverse Reactions: Allergies Allergy/AdvReac Type Severity Reaction Status Date / Time erythromycin base Allergy Intermediate swelling Verified 10/16/17 23:38 [Erythromycin Base] Penicillins Allergy Intermediate swelling Verified 10/16/17 23:38 meloxicam Allergy Edema Verified 12/09/17 11:36 Tetracyclines Allergy Edema Verified 12/09/17 11:46 - Social History Does the pt smoke?: No Smoking Status: Never smoker Does the pt drink ETOH?: No Does the pt have substance abuse?: No - Immunizations Immunizations are current?: Yes - POLST Patient has POLST: No PD ED PE NORMAL - Vitals Vital signs reviewed: Yes (none ) - General General: Other (intubated with ET blood in the ET tube) - HEENT HEENT: Atraumatic, Other (pupils fixed and dilated. ) - Cardiac Cardiac: Other (no cardiac activity by bedside ultrasound) - Respiratory Respiratory: Other (symetric rise with bagging and eaqual breath sounds. ) - Extremities Extremities: No deformity Results - Vitals Vitals: Vital Signs - 24 hr 04/09/18 09:15 Temperature 0 C L Heart Rate 0 L Respiratory 0 L Rate Blood Pressure 0/0 L O2 Saturation 0 L Oxygen O2 Source Room air Procedures - Bedside sono Bedside sono by EMP: With use of bedside ultrasound the cardiac silhouette is imaged and there is no activity of contraction. There is fluid within the ventricle. PD MEDICAL DECISION MAKING - ED course Complexity details: reviewed old records, reviewed results, considered differential ED course: 77 year old female was last seen normal this morning about 2 hours ago getting ready for her day. She was then discovered in bed unconscious and 911 was called. Medics were able to establish an IO line, intubate the patient and perform CPR with multiple rounds of epinephrine and amiodarone. She has been shocked 5 times. She arrives to the emergency department with ongoing CPR and an ET tube in place but does have some blood coming from it. On initial evaluation she has good symmetric chest rise with insufflation she has symmetric breath sounds and a palpable femoral pulse on cardiac massage. Bedside ultrasound shows cardiac stand still and CPR has been ongoing for more than 30 minutes. She appears to be and has not responded to efforts to recusitate. - Sepsis Event Vital Signs: Vital Signs - 24 hr 04/09/18 09:15 Temperature 0 C L Heart Rate 0 L Respiratory 0 L Rate Blood Pressure 0/0 L O2 Saturation 0 L Oxygen O2 Source Room air Departure - Departure Disposition: 20 Discharge Date/Time: 04/09/18 16:03
== END 2018-04-09 16:03 | disposition expired ==
LOC: EDUNIT# → ED 09:15
DX: I46.9 Cardiac arrest, cause unspecified (principal); I12.0 Hypertensive chronic kidney disease with stage 5 chronic kidney disease or end stage renal disease; E11.22 Type 2 diabetes mellitus with diabetic chronic kidney disease; N18.6 End stage renal disease; Z94.0 Kidney transplant status
CPT/HCPCS: 92950; 99284; 99285